=== PATIENT | female | born 1940 | race Caucasian/White ===

== ENCOUNTER 2019-05-10 13:16 | Outpatient (CLI) | payer MEDICARE, OTHER, SELFPAY ==
--- NOTE | 2019-05-10 13:34 | CT_ITS ---
WS: [id number] CT ABDOMEN PELVIS TECHNIQUE: Contrast-enhanced CT of the abdomen and pelvis with coronal and sagittal reformatted image s. CLINICAL INFORMATION: ABDOMINAL PAIN COMPARISON: None. DLP: 1132.[address] scans at [facility] use at least one of these dose optimization techniques: automat ed exposure control; mA and/or kV adjustment per patient size (includes targeted exams where dose is matched to clinical indication); or iterative reconstruction. FINDINGS: Liver is normal in appearance. Normal portal vein and splenic vein. Prominent calcified gallstone in the gallbladder neck measuring 2.1 x 1.7 CM. No gallbladder wall thickening or inflammatory stranding . This can be further evaluated with ultrasound. Splenic granulomas. Normal pancreatic parenchymal en hancement. Lung bases are well aerated. Calcified granuloma right lower lobe. Normal GE junction. Adrenal glands are normal. Normal renal parenchymal enhancement. No hydronephrosis. Aortic calcification. Moderate aortic atheromatous disease. No periaortic lymphadenopathy. Tiny fat-containing umbilical hernia. Sigmoid diverticulosis. No evidence of acute diverticulitis. No evidence of small or large bowel obst ruction. Normal appendix. No pelvic or inguinal lymphadenopathy. Disc space narrowing lumbar spine worse at L4-5. Prior hysterectomy. CT/CT abdomen pelvis w con* [id number] IMPRESSION: 1. Large calcified gallstone in gallbladder measuring 2.1 x 1.7 CM. This can b e further evaluated with ultrasound. 2. Diverticulosis. No evidence of acute diverticulitis. 3. No hydronephrosis. 4. No abdominal lymphadenopathy. 5. Sigmoid diverticulosis. 6. Prior hysterectomy.
[2019-05-10] MEDS: iohexol 300 mg/mL 50 mL Btl PO (14:29)
[2019-05-10 14:38] LABS: Blood Urea Nitrogen 11 mg/dL (8-23)
[2019-05-10] MEDS: iodixanol 320 mg/mL 100mL Btl IV (14:44)
== END 2019-05-10 13:17 | disposition home or self-care (01) ==
LOC: RADWPI 13:21
PROVIDERS: Family Provider Nurse Practitioner Family; PCP Family Medicine; Visit Provider Family Medicine
DX: K57.30 Diverticulosis of large intestine without perforation or abscess without bleeding (principal); K80.20 Calculus of gallbladder without cholecystitis without obstruction; R10.9 Unspecified abdominal pain; K80.80 Other cholelithiasis without obstruction
CPT/HCPCS: 74177; 82565; 84520; Q9967

== ENCOUNTER 2020-02-15 09:18 | Emergency (ER) | payer MEDICARE, OTHER, SELFPAY ==
--- NOTE | 2020-02-15 09:32 | XR_ITS ---
WS: [id number] XR chest 1V portable [id number] REASON FOR EXAM: COVID r/o, cough, fever FINDINGS: The chest is unchanged compared to previous examination of 05/02/2012. The heart is at the upper limits of normal in size. Calcified granulomatous disease in both hemithoraces. No active pulmonary parenchymal or pleural dise ase is identified. Mild changes of degenerative spondylosis in the lower thoracic spine. XR/XR chest 1V portable [id number] IMPRESSION: No acute chest abnormality.
[2020-02-15 09:36] VITALS: PULSE 59; RESP 12; TEMP 36.9; O2SAT 97; BMI 25.8
--- NOTE | 2020-02-15 09:51 | ED_ITS ---
HPI - COVID General: Chief Complaint: COVID symptoms Stated Complaint: cough/fever Time Seen by Provider: 02/15/20 09:31 Triage information: No fever, cough or shortness of breath . No known COVID + exposure last 14 days History of Present Illness: HPI Narrative: This patient is a 79-year-old female who is overall generally healthy. She presents today with fever and cough. The fever started last night and this morning was 101. She is also had a cough since yesterday morning. She also has had headaches and general malaise. She has not had vomiting or diarrhea. She has a history of getting bronchitis several times a year and initially thought that is what this was. She is concerned because of the fever. She does not know of any Covid exposures but she did go get her hair done last week. She is also had family members visiting. MD complaint: has COVID symptoms Prior covid testing: no COVID 19 common symptoms: positive fever(s), chills, cough, dyspnea, fatigue, body aches and headache(s); negative nausea or vomiting COVID 19 other sytmptoms: negative chest pain Onset (ago): day(s) (2) Severity: moderate Pertinent comorbid conditions: hypertension Treatment prior to arrival: none COVID Results: SARS-CoV-2 Antigen (Rapid) Negative (Negative) 02/15/20 10:41 02/15/20 Review of Systems General: Reports: 10 or more systems reviewed and unremarkable except in HPI and below Const: Reports: fever(s), chills, body aches and fatigue Eyes: Denies: change in vision ENMT: Denies: odynophagia Card: Denies: chest pain or swelling of feet/ankles Resp: Reports: dyspnea GI: Denies: abdominal pain, nausea or vomiting : Denies: flank pain or difficulty voiding Musc: Denies: neck pain or back pain Skin/Breast: Denies: rash Neuro: Reports: headache(s) Arnoldo/Lymph: Denies: easy bruising or easy bleeding Physical Exam Const: COMMON NORMALS: no acute distress, average body habitus, patient oriented x3, no limitations and alert GENERAL APPEARANCE: cooperative, comfortable and other (Skin feels warmer than the documented 98.4 temperature) HENMT: HEAD & SCALP: normal to inspection FACE & SINUS: normal facial exam Eye: GENERAL EYE: appearance normal, both eyes and all related structures Neck/C-Spine: COMMON NORMALS: supple, no meningeal signs and no JVD Chest: COMMONS NORMALS: normal inspection of the chest Resp: COMMON NORMALS: normal respiratory effort, No use of accessory muscles and clear to auscultation bilaterally AUSCULTATION: clear to auscultation bilaterally Cardio: COMMON NORMALS: no JVD, regular rate, regular rhythm and No murmurs present (Cardio) RATE: regular rate RHYTHM: regular rhythm GI: COMMON NORMALS: Normal to inspection, nondistended, normoactive bowel sounds present, Soft to palpation and non-tender INSPECTION: Yes normal to inspection AUSCULTATION: Yes normoactive bowel sounds PALPATION: Yes Soft to palpation Back/Pelvis: COMMON NORMALS: thoracic and lumbar spine normal to inspection Extremity: COMMON NORMALS: normal to inspection Neuro: COMMON NORMALS: patient oriented x3, moves all extremities, no focal motor deficits and no sensory deficits noted SENSORIUM/ORIENTATION: Yes alert MENINGEAL SIGNS: Yes no meningeal signs Psych: COMMON NORMALS: mental status grossly normal, cooperative and normal affect Skin: COMMON NORMALS: no rashes or lesions noted and turgor normal GENERAL SKIN EXAM: no rashes or lesions noted and turgor normal Course ED course: Patient had a negative Covid test but we did discuss that there are false negatives possible with any test. I advised that she continue to self isolate until a send out Covid comes back and is also negative. She expect she can have a little bit of an infiltrate in the left base and I am to put her on some antibiotics. Naheed send her home with a pulse oximeter. She has good follow-up through her primary care doctor and she understands to return to the ER if she is getting worse in any way. Vital Signs: Vital signs: Vital Signs Temperature 98.4 F 02/15/20 09:36 Pulse Rate 59 L 02/15/20 09:36 Respiratory Rate 12 02/15/20 09:36 Pulse Oximetry 96 02/15/20 10:55 MDM - COVID Lab Data: Labs: Lab Results 02/15/20 02/15/20 02/15/20 Range/Units 10:41 10:41 10:43 WBC 6.1 (4.0-10.0) 10^3/ uL RBC 4.59 (4.1-5.3) 10^6/u L Hgb 13.2 (11.5-15.3) g/dL Hct 41.8 (37.0-47.0) % MCV 91.1 (81-99) fL MCH 28.8 (28.0-34.0) pg MCHC 31.6 (30.0-36.0) g/dL RDW 13.4 (12.1-15.1) % Plt Count 243 (130-400) 10^3/c mm MPV 10.5 H (7.4-10.4) fL Neut % (Auto) 80.2 % Lymph % (Auto) 10.4 % [place] % (Auto) 6.6 % Eos % (Auto) 1.8 % Baso % (Auto) 0.7 % Neut # (Auto) 4.87 (1.8-7.7) 10^3/u L Lymph # (Auto) 0.6 L (0.8-4.8) 10^3/u L [place] # (Auto) 0.4 (0.2-0.9) 10^3/u L Eos # (Auto) 0.1 (0.0-0.8) 10^3/u L Baso # (Auto) 0.0 (0.0-0.1) 10^3/u L Nucleated RBC % (a uto) 0 % Nucleated RBCs # 0.0 /100WBC PT (12.1-14.9) SECO NDS INR (0.8-1.2) Fibrinogen (174-498) mg/dL D-Dimer (0-0.59) ug/mIFE U Sodium (136-145) mmol/L Potassium (3.5-5.1) mmol/L Chloride (98-107) mmol/L Carbon Dioxide (22-29) mmol/L Anion Gap (5-19) BUN (8-23) mg/dL Creatinine (0.5-0.9) mg/dL GFR Calculation Glucose (65-115) mg/dL Calculated Osmolal ity (285-295) mOsm/k g Lactic Acid (0.5-2.2) mmol/L Calcium (8.5-10.5) mg/dL Total Bilirubin (0.15-1.2) mg/dL AST (0-32) U/L ALT (0-33) U/L Alkaline Phosphata se (35-105) IU/L Lactate Dehydrogen ase (135-214) U/L C-Reactive Protein (0.0-4.9) mg/L NT-Pro-B Natriuret Pep (0-450) pg/mL Total Protein (6.6-8.7) g/dL Albumin (3.5-5.2) g/dL Globulin (1.3-4.6) g/dL Procalcitonin (0-0.5) ng/mL Influenza Type A A g Negative (Negative) Influenza Type B A g Negative (Negative) SARS-CoV-2 Ag (Rap id) Negative (Negative) 02/15/20 02/15/20 02/15/20 Range/Units 10:43 10:43 10:43 WBC (4.0-10.0) 10^3/ uL RBC (4.1-5.3) 10^6/u L Hgb (11.5-15.3) g/dL Hct (37.0-47.0) % MCV (81-99) fL MCH (28.0-34.0) pg MCHC (30.0-36.0) g/dL RDW (12.1-15.1) % Plt Count (130-400) 10^3/c mm MPV (7.4-10.4) fL Neut % (Auto) % Lymph % (Auto) % [place] % (Auto) % Eos % (Auto) % Baso % (Auto) % Neut # (Auto) (1.8-7.7) 10^3/u L Lymph # (Auto) (0.8-4.8) 10^3/u L [place] # (Auto) (0.2-0.9) 10^3/u L Eos # (Auto) (0.0-0.8) 10^3/u L Baso # (Auto) (0.0-0.1) 10^3/u L Nucleated RBC % (a uto) % Nucleated RBCs # /100WBC PT 13.00 (12.1-14.9) SECO NDS INR 0.95 (0.8-1.2) Fibrinogen 421 (174-498) mg/dL D-Dimer 0.83 H (0-0.59) ug/mIFE U Sodium 140 (136-145) mmol/L Potassium 3.6 (3.5-5.1) mmol/L Chloride 100 (98-107) mmol/L Carbon Dioxide 30 H (22-29) mmol/L Anion Gap 13.6 (5-19) BUN 11 (8-23) mg/dL Creatinine 1.0 H (0.5-0.9) mg/dL GFR Calculation Not Reportable Glucose 89 (65-115) mg/dL Calculated Osmolal ity 289 (285-295) mOsm/k g Lactic Acid 0.8 (0.5-2.2) mmol/L Calcium 9.1 (8.5-10.5) mg/dL Total Bilirubin 0.3 (0.15-1.2) mg/dL AST 18 (0-32) U/L ALT 13 (0-33) U/L Alkaline Phosphata se 80 (35-105) IU/L Lactate Dehydrogen ase 187 (135-214) U/L C-Reactive Protein 4.7 (0.0-4.9) mg/L NT-Pro-B Natriuret Pep 311 (0-450) pg/mL Total Protein 6.9 (6.6-8.7) g/dL Albumin 4.1 (3.5-5.2) g/dL Globulin 2.8 (1.3-4.6) g/dL Procalcitonin 0.03 (0-0.5) ng/mL Influenza Type A A g (Negative) Influenza Type B A g (Negative) SARS-CoV-2 Ag (Rap id) (Negative) COVID Results: SARS-CoV-2 Antigen (Rapid) Negative (Negative) 02/15/20 10:41 02/15/20 Discharge Plan Discharge Patient Disposition: Home Clinical Impression: Suspected severe acute respiratory syndrome coronavirus 2 (SARS-CoV-2) infection, Bronchitis Condition: Stable Prescriptions: New doxycycline hyclate 100 mg capsule 100 mg PO BID 10 Days Qty: 20 RF: 0 No Action carvedilol 25 mg tablet 25 mg PO BID RF: 0 pravastatin 40 mg tablet 40 mg PO DAILY RF: 0 lisinopril 20 mg tablet 20 mg PO BID RF: 0 Synthroid 25 mcg tablet 25 mcg PO DAILY RF: 0 isosorbide mononitrate 60 mg tablet extended release 24 hr 60 mg PO DAILY RF: 0 pantoprazole 40 mg tablet,delayed release (DR/EC) 40 mg PO DAILY RF: 0 Discharge Orders: Discharge Order (Routine); Ordered 02/15/20 Ordered By: Safia Dick Referrals: Carlo Jeffries MD [Primary Care Provider] - Discharge Diet: Usual diet Discharge Activity: Limit activity as instructed Patient Instructions: Acute Bronchitis (ED) Activity Restrictions/Additional Instructions: You should continue to self isolate until the results of the send out COVID test are back - as there are false negatives with the rapid test. Rest, drink plenty of fluids. Use tylenol for fever, headaches. Return if worse in any way including shortness of breath. 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
[2020-02-15 10:54] LABS: Basophils % 0.7 %; Eosinophils # 0.1 10^3/uL (0.0-0.8); Eosinophils % 1.8 %; Hematocrit 41.8 % (37.0-47.0); Hemoglobin 13.2 g/dL (11.5-15.3); Lymphocytes # 0.6 10^3/uL (0.8-4.8); Lymphocytes % 10.4 %; Mean Corpuscular HGB Conc 31.6 g/dL (30.0-36.0); Mean Corpuscular Hemoglobin 28.8 pg (28.0-34.0); Mean Corpuscular Volume 91.1 fL (81-99); Mean Platelet Volume 10.5 fL (7.4-10.4); Monocytes # 0.4 10^3/uL (0.2-0.9); Monocytes % 6.6 %; Neutrophils # 4.87 10^3/uL (1.8-7.7); Neutrophils % 80.2 %; Nucleated Red Blood Cells % 0 %; Platelet Count 243 10^3/cmm (130-400); Red Blood Count 4.59 10^6/uL (4.1-5.3); Red Cell Distribution Width 13.4 % (12.1-15.1); White Blood Count 6.1 10^3/uL (4.0-10.0)
[2020-02-15 10:55] VITALS: O2SAT 96
[2020-02-15 11:14] LABS: Lactic Sepsis W/Reflex 0.8 mmol/L (0.5-2.2)
[2020-02-15 11:26] LABS: INR 0.95 (0.8-1.2); NT Pro B Type Natriuretic Pept 311 pg/mL (0-450); Procalcitonin 0.03 ng/mL (0-0.5)
[2020-02-15 11:27] LABS: Fibrinogen 421 mg/dL (174-498)
[2020-02-15 11:29] LABS: D Dimer 0.83 ug/mIFEU (0-0.59)
[2020-02-15 11:37] LABS: Alanine Aminotransferase 13 U/L (0-33); Albumin Level 4.1 g/dL (3.5-5.2); Alkaline Phosphatase 80 IU/L (35-105); Anion Gap 13.6 (5-19); Aspartate Amino Transferase 18 U/L (0-32); Blood Urea Nitrogen 11 mg/dL (8-23); C Reactive Protein 4.7 mg/L (0.0-4.9); Calcium 9.1 mg/dL (8.5-10.5); Carbon Dioxide 30 mmol/L (22-29); Chloride 100 mmol/L (98-107); Globulin 2.8 g/dL (1.3-4.6); Glucose 89 mg/dL (65-115); Lactate Dehydrogenase 187 U/L (135-214); Osmolality Calculated 289 mOsm/kg (285-295); Potassium 3.6 mmol/L (3.5-5.1); Sodium 140 mmol/L (136-145); Total Bilirubin 0.3 mg/dL (0.15-1.2); Total Protein 6.9 g/dL (6.6-8.7)
[2020-02-15 11:49] LABS: SARS Covid-2 Antigen Negative (Negative)
[2020-02-15 11:52] LABS: Influenza A by IFA Negative (Negative); Influenza B by IFA Negative (Negative)
[2020-02-15 13:29] VITALS: BP 156/74; PULSE 70; RESP 18; O2SAT 98
[2020-02-17 07:28] LABS: Quest SARS-CoV-2 RNA DETECTED (NOT DETECTED)
--- NOTE | 2020-02-17 09:52 | PC.NURSE ---
pt notified of covid results
== END 2020-02-15 13:35 | disposition home or self-care (01) ==
PROVIDERS: Emergency Provider Emergency Medicine; PCP Family Medicine
DX: U07.1 COVID-19 (principal); J40 Bronchitis, not specified as acute or chronic
CPT/HCPCS: 12345; 71045; 80053; 83605; 83615; 83880; 84145; 85025; 85378; 85384; 85610; 86140; 87426; 87635; 87804; 99281; 99283

== ENCOUNTER 2021-06-19 06:54 | Outpatient (CLI) | payer MEDICARE, OTHER, SELFPAY ==
[2021-06-19 07:06] VITALS: BMI 25.8
--- NOTE | 2021-06-19 07:13 | ECG_ITS ---
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 Interpretive Statements NAME OF STUDY: LEXISCAN SESTAMIBI STRESS TEST INDICATION: Chest Pain, PROCEDURE: At the baseline, the EKG revealed normal sinus rhythm with a poor R wave progression. The baseline blood pressure was 144/75 mm Hg with a heart rate of 64 beats/min. Lexiscan was infused over a period of 20 seconds. A total of 0.4 milligrams of Lexiscan was infused. The stress phase was continued for a total of 5 minutes. Heart rate at the end of the stress phase was 73 with a blood pressure 129/60. The EKG at the peak infusion revealed no significant changes. Sestamibi was injected 20 seconds after the Lexiscan infusion. Blood pressure at the end of the recovery phase was 129/55 with a heart rate of 71 per minute. CONCLUSION: 1. Nonspecific EKG changes with the LexiScan infusion 2. No LexiScan induced chest pain or cardiac arrhythmia 3. Normal blood pressure and heart rate response 4. Sestamibi/sestamibi perfusion scan pending; see separate report. Electronically Signed On 06-22-2021 14:11:57 CDT by Eduardo Cortés M.D. [id number]
--- NOTE | 2021-06-19 07:13 | NMCV_ITS ---
NM huang perf SPECT r/s* [id number] Fabiana Gibbs Age: 80 Gender: F : 1940 Exam Date: 06/19/2021 07:13 Ordering Phys: Carlo Jeffries MD Technologist: SANAM De Anda Exam Location: [facility] Indications: CHEST PAIN STRESS TEST Please see separate stress test report in [facility] for full findings IMAGE PROTOCOL Rest/Stress 1 Lexiscan Day Radiopharmaceutical Dose (mCi) Administration Site Administered by Rest: Tc-99m 10.8 IV SANAM Stevenson Sestamibi Stress:Tc-99m 32.8 IV SANAM Stevenson Sestamibi Rest: 19-Jun-2021 60 Discovery 630 Stress: 19-Jun-2021 30 Discovery 630 0.4mg Lexiscan. Images obtained in supine and prone position. SPECT RESULTS Technical Quality: Excellent Raw Data Analysis: Normal Image Corrections: No attenuation or motion correction applied Summed Stress Score: 3 Summed Rest Score: 1 Summed Difference Score: 2 PERFUSION FINDINGS A small area of decreased tracer uptake in the apical anterior, apical lateral and LV apex with some areas of inconsistent reversibility in the anterior and apical regions FUNCTIONAL RESULTS (calculated via Gated SPECT) Stress Image LV EF (%): 71 Stress EDV (mL):79 TID: 1.07 Stress ESV (mL):23 FUNCTIONAL FINDINGS: Segmental wall motion analysis revealing no gross wall motion abnormalities IMPRESSIONS 1. Myocardial perfusion imaging revealing small areas of inconsistent reversible defects in the apical anterior and LV apex, may suggest ischemia in the distribution of the distal LAD/circumflex. But because of the inconsistencies, this could be artifactual. 2. Normal LV ejection fraction 71%. 3. LV wall motion analysis revealing no gross wall motion abnormalities. 4. Normal LV volume Possibly no significant ischemia, based on the above findings. Clinical correlation is recommended Dr Eduardo Cortés MD [facility] (Electronically Signed) Final Date: 19 June 2021 13:05 S
[2021-06-19 08:51] VITALS: BP 136/60; PULSE 64
[2021-06-19] MEDS: regadenoson 0.4 Mg/5 ml Syringe IVP (08:51)
== END 2021-06-19 06:55 | disposition home or self-care (01) ==
PROVIDERS: PCP Family Medicine; Visit Provider Family Medicine
DX: R07.9 Chest pain, unspecified (principal)
CPT/HCPCS: 78452; 93017; A9500; J2785

== ENCOUNTER 2021-07-05 07:14 | Outpatient (CLI) | payer MEDICARE, OTHER, SELFPAY ==
--- NOTE | 2021-07-05 07:23 | MM_ITS ---
WS: [id number] DIAGNOSTIC BILATERAL 3D TOMOSYNTHESIS DIGITAL MAMMOGRAM WITH CAD HISTORY: HX OF BREAST CA COMPARISON: 03/27/2018 and 11/04/2016, 06/29/2013 TECHNIQUE: Bilateral craniocaudad, mediolateral oblique, and mediolateral views are submitted. Comput er aided detection utilized. Breast composition: The breasts are heterogeneously dense, which may obscure small masses. Scattered asymmetries and lymph nodes. Benign vascular and round calcifications within each breast. MM/[place] [id number] IMPRESSION: BI-RADS: 2-Benign FOLLOW UP: 1 Year Follow-up
== END 2021-07-05 07:15 | disposition home or self-care (01) ==
LOC: RAD 07:17
PROVIDERS: PCP Family Medicine; Visit Provider Family Medicine
DX: Z85.3 Personal history of malignant neoplasm of breast (principal)
CPT/HCPCS: 77062

== ENCOUNTER → 2021-07-23 11:35 | Outpatient (BNVA) | payer MEDICARE, OTHER, SELFPAY | PROVIDERS: PCP Family Medicine; Visit Provider Internal Medicine | DX: R94.39 Abnormal result of other cardiovascular function study (principal); I10 Essential (primary) hypertension; Z87.891 Personal history of nicotine dependence; R00.1 Bradycardia, unspecified | CPT/HCPCS: 93005; 99203; 99204 ==

== ENCOUNTER 2021-10-11 06:58 | Outpatient (CLI) | payer MEDICARE, OTHER, SELFPAY ==
--- NOTE | 2021-10-11 07:00 | USCV_ITS ---
Fabiana Gibbs Age: 81 Gender: F : 1940 Exam Date: 10/11/2021 07:11 Ordering Phys: Ishan Alexander M.D ([email or web address]) Technologist: Vivian Beavers Exam Location: [facility] [place] Indication: sob BP: 138 / 69 HR: 50 Rhythm: Sinus Technical Quality: Adequate MEASUREMENTS (Male / Female) Normal Values 2D ECHO LV Diastolic Diameter PLAX 4.4 cm 4.2 - 5.9 / 3.9 - 5.3 cm LV Systolic Diameter PLAX 2.8 cm LV Chamber Size 4.3 cm IVS Diastolic Thickness 1.0 cm 0.6 - 1.0 / 0.6 - 0.9 cm IVS Systolic Thickness 1.7 cm LVPW Diastolic Thickness 1.1 cm 0.6 - 1.0 / 0.6 - 0.9 cm LVPW Systolic Thickness 1.7 cm RV Chamber Size 2.2 cm LVOT Diameter 2.0 cm LV Ejection Fraction 2D Teich 67.9 % LV Ejection Fraction MOD 2C 70.2 % LV Ejection Fraction 2C AL 69.7 % LA Diameter 3.9 cm LA Width 3.3 cm LA Height 4.4 cm RA Width 2.7 cm RA Height 3.4 cm Aorta at Sinotubular Diameter 2.9 cm IVC Diameter 1.9 cm M-MODE Aortic Annulus Diameter 3.3 cm LA Ao Ratio MM 1.3 MV E Point Septal Separation 0.6 cm DOPPLER AV Peak Velocity 140.0 cm/s LVOT Peak Velocity 83.3 cm/s AV Area Cont Eq vti 2.2 cm squared AV Area Cont Eq pk 1.9 cm squared MV Area PHT 2.4 cm squared Mitral E to A Ratio 0.9 MV E' Velocity 54.0 cm/s Mitral E to MV E' Ratio 11.6 Mitral E to LV E' Lateral Ratio 9.3 Mitral E to LV E' Septal Ratio 15.1 TR Peak Velocity 210.3 cm/s TR Peak Gradient 17.7 mmHg TR Mean Velocity 157.2 cm/s TR Mean Gradient 11.5 mmHg TR Velocity Time Integral 79.3 cm TV Peak E Velocity 60.0 cm/s Right Atrial Pressure 3.0 mmHg Pulmonary Artery Systolic Pressu 20.7 mmHg PV Peak Velocity 67.0 cm/s RV Acceleration Time 0.1 s RV Ejection Time 0.4 s RV AcT/ET 0.3 FINDINGS Left Ventricle Normal left ventricular size. LV systolic function is normal with EF of 55-60%. No regional wall motion abnormalities. Right Ventricle The right ventricle is normal in size and function. Right Atrium The right atrium is normal in size. Normal RA pressure Left Atrium The left atrium is normal in size. Mitral Valve Mild mitral annular calcification. Mild mitral regurgitation Aortic Valve Aortic valve is thickened. No significant aortic stenosis. No significant regurgitation. Tricuspid Valve Structurally normal tricuspid valve without significant stenosis. Mild tricuspid regurgitation. Pulmonary artery systolic pressure is normal. Pulmonic Valve Trace pulmonic regurgitation Pericardium Normal pericardium without effusion. Aorta Normal ascending aorta dimension. IVC CONCLUSIONS LV systolic function is normal with EF of 55 to 60%. Mild mitral regurgitation. Mild mitral annular calcification. Aortic valve is thickened. Mild tricuspid regurgitation. Trace pulmonic regurgitation. Compared to prior echocardiogram from 2013, no significant changes are seen. Ishan Alexander MD (Electronically Signed) Final Date: 24 October 2021 18:43 S
== END 2021-10-11 06:59 | disposition home or self-care (01) ==
PROVIDERS: PCP Family Medicine; Visit Provider Internal Medicine
DX: R06.02 Shortness of breath (principal)
CPT/HCPCS: 93306

== ENCOUNTER → 2022-04-29 13:51 | Outpatient (BNVA) | payer MEDICARE, OTHER, SELFPAY | PROVIDERS: PCP Family Medicine; Visit Provider Internal Medicine | DX: I10 Essential (primary) hypertension (principal); R94.39 Abnormal result of other cardiovascular function study; F17.210 Nicotine dependence, cigarettes, uncomplicated | CPT/HCPCS: 99214 ==

== ENCOUNTER → 2022-05-03 09:17 | Outpatient (BNVA) | payer MEDICARE, OTHER, SELFPAY | PROVIDERS: PCP Family Medicine; Visit Provider Family Medicine | DX: E03.9 Hypothyroidism, unspecified (principal); Z51.81 Encounter for therapeutic drug level monitoring; I10 Essential (primary) hypertension; Z13.220 Encounter for screening for lipoid disorders | CPT/HCPCS: 80053; 80061; 83735; 84439; 84443; 85025 ==

== ENCOUNTER 2022-07-09 10:23 | Outpatient (CLI) | payer MEDICARE, OTHER, SELFPAY ==
--- NOTE | 2022-07-09 10:36 | MM_ITS ---
WS: [id number] BILATERAL 3D TOMOSYNTHESIS DIGITAL SCREENING MAMMOGRAPHY WITH CAD CLINICAL INFORMATION: ANNUAL - HX OF BREAST CA HISTORY: Screening mammogram. No current complaints. COMPARISON: July 05, 2021 TECHNIQUE: Bilateral CC and MLO views. FINDINGS: The breasts are composed of heterogeneous fibroglandular density tissue, which can limit the detectio n of small underlying mass lesions. No suspicious mass, asymmetry, calcifications, or architectural d istortion. No evidence of malignancy. Incidental punctate calcifications similar to previous. Vascula r calcifications. MM/[place] [id number] IMPRESSION: BI-RADS: 2-Benign FOLLOW UP: 1 Year Follow-up Recommend return to annual diagnostic mammography.
== END 2022-07-09 10:24 | disposition home or self-care (01) ==
PROVIDERS: PCP Family Medicine; Visit Provider Family Medicine
DX: Z12.31 Encounter for screening mammogram for malignant neoplasm of breast (principal); Z85.3 Personal history of malignant neoplasm of breast
CPT/HCPCS: 77062; G0279

== ENCOUNTER 2022-08-31 23:53 | Emergency (ER) | payer MEDICARE, OTHER, SELFPAY ==
[2022-08-31 23:58] VITALS: BP 171/76; PULSE 58; RESP 18; TEMP 36.8; O2SAT 96; BMI 23.9
[2022-09-01 00:02] VITALS: BP 171/76; PULSE 56; RESP 16; O2SAT 97
--- NOTE | 2022-09-01 00:24 | ED_ITS ---
HPI - Allergic Reaction General: Chief complaint: Allergic Reaction Stated complaint: face swelling, sore throat, nausea Time Seen by Provider: 09/01/22 00:08 Source: patient Mode of arrival: ambulatory Limitations: no limitations History of Present Illness: HPI narrative: 82-year-old female states she noticed some swelling to left lower lip over the last few hours. She denies any shortness of breath denies any tongue swelling she does have noticeable swelling to her lips. She denies having any allergic reactions in the past she has not changed anything she has been on lisinopril for quite some time. Associated symptoms: Deny abdominal pain, nausea or vomiting Review of Systems Const: Denies: fever(s) or chills ENMT: Denies: throat pain or dental pain Card: Denies: chest pain Resp: Denies: dyspnea GI: Denies: abdominal pain, nausea, vomiting or diarrhea Musc: Denies: neck pain or back pain Skin/Breast: Denies: rash Neuro: Denies: headache(s) PFSH ED PFSH: Social History Smoking and tobacco status: former smoker Alcohol intake: never Substance/Drug Use: never Physical Exam Const: COMMON NORMALS: patient oriented x3 HENMT: COMMON NORMALS: normocephalic and atraumatic HEAD & SCALP: normocephalic and atraumatic OTHER: swelling to left lower lip/ no tongue swelling Eye: COMMON NORMALS: Equal, round and reactive pupils present and EOMs intact bilaterally PUPIL: Yes Equal, round and reactive pupils present Neck/C-Spine: COMMON NORMALS: full ROM and supple Chest: COMMONS NORMALS: normal inspection of the chest and normal palpation of entire chest wall Resp: COMMON NORMALS: normal respiratory effort, No retractions, No use of accessory muscles and clear to auscultation bilaterally AUSCULTATION: clear to auscultation bilaterally Cardio: COMMON NORMALS: regular rate, regular rhythm and No murmurs present (Cardio) RATE: regular rate RHYTHM: regular rhythm GI: COMMON NORMALS: Normal to inspection, nondistended, normoactive bowel sounds present, Soft to palpation, non-tender and no masses PALPATION: Yes Soft to palpation Extremity: COMMON NORMALS: normal to inspection and full ROM Neuro: COMMON NORMALS: patient oriented x3, moves all extremities and no focal motor deficits Psych: COMMON NORMALS: mental status grossly normal, Normal thought process present and cooperative THOUGHT PROCESS: Normal thought process present Skin: COMMON NORMALS: no rashes or lesions noted and no wounds GENERAL SKIN EXAM: no rashes or lesions noted Course Vital Signs: Vital signs: Vital Signs Temperature 98.2 F 08/31/22 23:58 Pulse Rate 56 L 09/01/22 00:02 Respiratory Rate 16 09/01/22 00:02 Blood Pressure 171/76 09/01/22 00:02 Pulse Oximetry 97 09/01/22 00:02 Oxygen Delivery Me thod Room Air 09/01/22 00:02 MDM - Allergic Reaction Medical Decision Making Patient presents here with angioedema is improving here could be from the lisinopril we will stop the lisinopril states her blood pressures been running a little low so we will hold that lisinopril have her take her blood pressure morning and night and follow-up with her PCP next week she also is hypothyroid with her TSH being high we will increase her Synthroid from 25-37.5 Medical Records I reviewed the patient's medical records. Lab Data I reviewed the patient's lab results. 09/01/22 00:05 09/01/22 00:05 Laboratory Results WBC 6.4 10^3/uL (4.0-10.0) 09/01/22 00:05 RBC 4.25 10^6/uL (4.1-5.3) 09/01/22 00:05 Hgb 12.5 g/dL (11.5-15.3) 09/01/22 00:05 Hct 37.2 % (37.0-47.0) 09/01/22 00:05 MCV 87.5 fl (81-99) 09/01/22 00:05 MCH 29.4 pg (28.0-34.0) 09/01/22 00:05 MCHC 33.6 g/dL (30.0-36.0) 09/01/22 00:05 RDW 12.0 % (12.1-15.1) L 09/01/22 00:05 Plt Count 286 10^3/cmm (130-400) 09/01/22 00:05 MPV 11.3 fL (7.4-10.4) H 09/01/22 00:05 Neut % (Auto) 59.5 % 09/01/22 00:05 Lymph % (Auto) 28.8 % 09/01/22 00:05 Stearns % (Auto) 6.4 % 09/01/22 00:05 Eos % (Auto) 4.7 % 09/01/22 00:05 Baso % (Auto) 0.3 % 09/01/22 00:05 Neut # (Auto) 3.78 10^3/uL (1.8-7.7) 09/01/22 00:05 Lymph # (Auto) 1.8 10^3/uL (0.8-4.8) 09/01/22 00:05 Stearns # (Auto) 0.4 10^3/uL (0.2-0.9) 09/01/22 00:05 Eos # (Auto) 0.3 10^3/uL (0.0-0.8) 09/01/22 00:05 Baso # (Auto) 0.0 10^3/uL (0.0-0.1) 09/01/22 00:05 Nucleated RBC % (auto) 0 % 09/01/22 00:05 Nucleated RBCs # 0.0 /100WBC 09/01/22 00:05 Sodium 130 mmol/L (136-145) L 09/01/22 00:05 Potassium 3.5 mmol/L (3.5-5.1) 09/01/22 00:05 Chloride 94 mmol/L (98-107) L 09/01/22 00:05 Carbon Dioxide 26 mmol/L (22-29) 09/01/22 00:05 Anion Gap 13.5 (5-19) 09/01/22 00:05 BUN 12 mg/dL (8-23) 09/01/22 00:05 Creatinine 0.7 mg/dL (0.5-0.9) 09/01/22 00:05 GFR Calculation Not Reportable 09/01/22 00:05 Glucose 114 mg/dL (65-115) 09/01/22 00:05 Calculated Osmolality 271 mOsm/kg (285-295) L 09/01/22 00:05 Calcium 8.8 mg/dL (8.5-10.5) 09/01/22 00:05 TSH 7.48 uIU/mL (0.27-4.20) H 09/01/22 00:05 Discharge Plan Discharge Patient Disposition: Home Clinical Impression: Angioedema, Hypothyroidism Condition: Stable Prescriptions: Changed levothyroxine 25 mcg tablet 37.5 mcg PO DAILY Qty: 90 3RF Discontinued lisinopril 20 mg tablet 20 mg PO BID Qty: 180 3RF No Action indapamide 2.5 mg tablet 2.5 mg PO QAM clonidine HCl 0.1 mg tablet 0.05 mg PO BID PRN (Reason: hypertensive emergency) isosorbide mononitrate 60 mg tablet extended release 24 hr See Rx Instructions .ROUTE .COMPLEX Qty: 90 3RF Dose Instruction: TAKE ONE TABLET BY MOUTH EVERY MORNING Rx Instructions: TAKE ONE TABLET BY MOUTH EVERY MORNING pravastatin 40 mg tablet 40 mg PO DAILY Qty: 90 3RF carvedilol 25 mg tablet 25 mg PO BID Qty: 180 3RF pantoprazole 40 mg tablet,delayed release (DR/EC) 40 mg PO DAILY Discharge Orders: Discharge ED (Routine); Ordered 09/01/22 Ordered By: Hailey Landrum Referrals: Carlo Jeffries MD [Primary Care Provider] - 1-3 days Discharge Diet: Advance as tolerated Discharge Activity: Resume usual activity Patient Instructions: Angioedema (ED) Coding Level of Care Code 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
[2022-09-01] MEDS: EPINEPHrine 1 mg/mL INJ 0.3 MG IM (00:27)
[2022-09-01] MEDS: diphenhydrAMINE 50 mg/mL SDV 1mL 25 MG IVP (00:31)
[2022-09-01] MEDS: hydrocortisone 100 mg/2 mL SDV IVP (00:33)
[2022-09-01] MEDS: famotidine 20 mg/2 mL INJ 40 MG IVP (00:37)
[2022-09-01 01:13] LABS: Basophils % 0.3 %; Eosinophils # 0.3 10^3/uL (0.0-0.8); Eosinophils % 4.7 %; Hematocrit 37.2 % (37.0-47.0); Hemoglobin 12.5 g/dL (11.5-15.3); Lymphocytes # 1.8 10^3/uL (0.8-4.8); Lymphocytes % 28.8 %; Mean Corpuscular HGB Conc 33.6 g/dL (30.0-36.0); Mean Corpuscular Hemoglobin 29.4 pg (28.0-34.0); Mean Corpuscular Volume 87.5 fl (81-99); Mean Platelet Volume 11.3 fL (7.4-10.4); Monocytes # 0.4 10^3/uL (0.2-0.9); Monocytes % 6.4 %; Neutrophils # 3.78 10^3/uL (1.8-7.7); Neutrophils % 59.5 %; Nucleated Red Blood Cells % 0 %; Platelet Count 286 10^3/cmm (130-400); Red Blood Count 4.25 10^6/uL (4.1-5.3); White Blood Count 6.4 10^3/uL (4.0-10.0)
[2022-09-01 01:47] LABS: Anion Gap 13.5 (5-19); Blood Urea Nitrogen 12 mg/dL (8-23); Calcium 8.8 mg/dL (8.5-10.5); Carbon Dioxide 26 mmol/L (22-29); Chloride 94 mmol/L (98-107); Glucose 114 mg/dL (65-115); Osmolality Calculated 271 mOsm/kg (285-295); Potassium 3.5 mmol/L (3.5-5.1); Sodium 130 mmol/L (136-145); Thyroid Stimulating Hormone 7.48 uIU/mL (0.27-4.20)
[2022-09-01 02:02] VITALS: BP 117/58; PULSE 58; RESP 14; O2SAT 97
== END 2022-09-01 02:11 | disposition home or self-care (01) ==
PROVIDERS: Emergency Provider Emergency Medicine; PCP Family Medicine
DX: T78.3XXA Angioneurotic edema, initial encounter (principal); X58.XXXA Exposure to other specified factors, initial encounter; E03.9 Hypothyroidism, unspecified
CPT/HCPCS: 80048; 84443; 85025; 96372; 96374; 96375; 99284; J0171; J1200; J1720; J3490

== ENCOUNTER → 2022-09-02 17:16 | Outpatient (BNVA) | payer MEDICARE, OTHER, SELFPAY | PROVIDERS: PCP Family Medicine; Visit Provider Family Medicine | DX: R05.9 Cough, unspecified (principal); R06.02 Shortness of breath | CPT/HCPCS: 71046 ==

== ENCOUNTER → 2023-01-27 12:51 | Outpatient (BNVA) | payer MEDICARE, OTHER, SELFPAY | PROVIDERS: PCP Family Medicine; Visit Provider Internal Medicine | DX: I10 Essential (primary) hypertension (principal); R94.39 Abnormal result of other cardiovascular function study; Z87.891 Personal history of nicotine dependence | CPT/HCPCS: 99213 ==

== ENCOUNTER 2023-07-16 07:42 | Outpatient (CLI) | payer MEDICARE, OTHER, SELFPAY ==
--- NOTE | 2023-07-16 08:00 | MM_ITS ---
WS: [id number] BILATERAL SCREENING DIGITAL TOMOSYNTHESIS MAMMOGRAM WITH CAD HISTORY: Diagnostic mammogram - history of breast cancer COMPARISON: 07/09/2022, 07/05/2021, 11/04/2016 Bilateral CC and MLO views with tomosynthesis and synthetic mammography submitted. Computer aided det ection analyzed. Breast composition: The breasts are heterogeneously dense, which may obscure small masses. No suspici ous masses, microcalcifications or architectural distortion. Scattered asymmetries and calcifications are stable over multiple prior years. IMPRESSION: MM/[place] [id number] BI-RADS: 2-Benign FOLLOW UP: 1 Year Follow-up
== END 2023-07-16 07:43 | disposition home or self-care (01) ==
LOC: RAD 07:42
PROVIDERS: PCP Family Medicine; Visit Provider Family Medicine
DX: C50.919 Malignant neoplasm of unspecified site of unspecified female breast (principal); R92.30 Dense breasts, unspecified
CPT/HCPCS: 77062; G0279

== ENCOUNTER → 2023-08-01 08:45 | Outpatient (BNVA) | payer MEDICARE, OTHER, SELFPAY | PROVIDERS: PCP Family Medicine; Visit Provider Family Medicine | DX: E03.9 Hypothyroidism, unspecified; E78.5 Hyperlipidemia, unspecified; Z51.81 Encounter for therapeutic drug level monitoring; Z13.220 Encounter for screening for lipoid disorders; E55.9 Vitamin D deficiency, unspecified | CPT/HCPCS: 80053; 80061; 82306; 83735; 84439; 84443; 85025 ==

== ENCOUNTER 2023-08-22 07:04 | Outpatient (CLI) | payer MEDICARE, OTHER, SELFPAY ==
--- NOTE | 2023-08-22 | ECG_ITS ---
[facility] Test Date: 2023-08-22 Pat Name: Fabiana Gibbs Department: Room: Gender: Female [employer] Teacher: Rafia Bauerfus : 1940 Requested By: Carlo Alfaro Order Number: [id number] Naida MD: Ishan Alexander M.D. Interpretive Statements NAME OF STUDY: LEXISCAN SESTAMIBI STRESS TEST INDICATION: [Chest Pain, ] Procedure: At the baseline, the blood pressure was 108/70 mmHg with a heart rate of 57 bpm. The electrocardiogram showed sinus bradycardia, normal axis with normal ST and T's. The Lexiscan was infused over a period of 20 seconds. A total of 0.4 mg of Lexiscan was infused. The stress phase was continued for a total of 5 minutes. Heart rate was at the end of stress phase was 62 bpm and a blood pressure of 135/61 mmHg. The EKG at the peak infusion revealed normal sinus rhythm with no significant ST-T wave changes. PVCs seen Sestamibi was injected 20 seconds after the Lexiscan infusion. Blood pressure at the end of recovery phase was 119/62 mmHg with a heart rate of 74 bpm.PVCs seen Conclusion: 1. Normal EKG response to Lexiscan infusion 2. No Lexiscan induced chest pain or cardiac arrhythmia. 3. Normal blood pressure and heart rate response. 4. Sestamibi/sestamibi perfusion scan pending; see separate report. Electronically Signed On 09-08-2023 8:46:52 CDT by Ishan Alexander M.D. [id number]
[2023-08-22 07:40] VITALS: BMI 24.3
--- NOTE | 2023-08-22 07:40 | NMCV_ITS ---
NM huang perf SPECT r/s* [id number] Fabiana Gibbs Age: 83 Gender: F : 1940 Exam Date: 08/22/2023 07:40 Ordering Phys: Carlo Jeffries MD Technologist: SANAM De Anda Exam Location: [facility] Indications: CHEST PAIN STRESS TEST Please see separate stress test report in [facility] for full findings IMAGE PROTOCOL Rest/Stress 1 Lexiscan Day Radiopharmaceutical Dose (mCi) Administration Site Administered by Rest: Tc-99m 10.7 IV SANAM Stevenson Sestamibi Stress:Tc-99m 32.5 IV SANAM Stevenson Sestamibi Rest: 22-Aug-2023 60 Discovery 630 Stress: 22-Aug-2023 30 Discovery 630 0.4mg Lexiscan. Supine position only as patient was unable to lay prone. SPECT RESULTS Technical Quality: Excellent Raw Data Analysis: Normal Image Corrections: No attenuation or motion correction applied Summed Stress Score: 0 Summed Rest Score: 0 Summed Difference Score: 0 PERFUSION FINDINGS SPECT images demonstrate homogeneous tracer distribution throughout the myocardium. FUNCTIONAL RESULTS (calculated via Gated SPECT) Stress Image LV EF (%): 69 Stress EDV (mL):87 TID: 0.9 Stress ESV (mL):27 FUNCTIONAL FINDINGS: There is normal left ventricular systolic function. IMPRESSIONS 1. Normal myocardial perfusion imaging with no evidence of ischemia 2. LV systolic function is normal Ishan Alexander MD (Electronically Signed) Final Date: 22 Aug 2023 11:39 S
[2023-08-22] MEDS: regadenoson 0.4 Mg/5 ml Syringe 0.400000000000000022 MG IVP (09:01)
[2023-08-22 09:07] VITALS: BP 119/62; PULSE 63
== END 2023-08-22 07:05 | disposition home or self-care (01) ==
LOC: CDL 07:05
PROVIDERS: PCP Family Medicine; Visit Provider Family Medicine
DX: R07.9 Chest pain, unspecified (principal)
CPT/HCPCS: 36415; 78452; 93017; 96374; A9500; J2785

== ENCOUNTER → 2023-10-27 15:17 | Outpatient (BNVA) | payer MEDICARE, OTHER, SELFPAY | PROVIDERS: PCP Family Medicine; Visit Provider Internal Medicine | DX: I10 Essential (primary) hypertension (principal); R94.39 Abnormal result of other cardiovascular function study | CPT/HCPCS: 99213 ==

== ENCOUNTER 2024-03-28 10:53 | Emergency (ER) | payer MEDICARE, OTHER, SELFPAY ==
[2024-03-28 11:18] VITALS: BP 174/67; PULSE 57; RESP 18; TEMP 36.7; O2SAT 96; BMI 22.2
--- NOTE | 2024-03-28 11:23 | XRR_ITS ---
PROCEDURE INFORMATION: Exam: XR Lumbosacral Spine Exam date and time: 03/28/2024 11:34 AM Age: 83 years old Clinical indication: Low back pain; Patient HX: Lower back pain post fall TECHNIQUE: Imaging protocol: Radiologic exam of the lumbosacral spine. Views: 2 or 3 views. COMPARISON: CT abdomen pelvis w con* [id number] 05/10/2019 2:41 PM FINDINGS: Bones/joints: Right scoliosis. Disc space narrowing spurring levels. 40% upper endplate compression of L1. This compression is new since 2019. Normal alignment. Soft tissues: Unremarkable. Organs: Faintly calcified gallstone. XR/XR lumbar spine 2-3V* [id number] IMPRESSION: 1. Moderate degenerative changes. 2. Mild L1 compression. This is new since. 3. Cholelithiasis.
[2024-03-28] MEDS: ondansetron 4 MG Tablet PO (11:29)
[2024-03-28] MEDS: morphine 4 mg/mL SDV 1 mL 6 MG IM (11:29)
--- NOTE | 2024-03-28 12:33 | ED_ITS ---
HPI - Fall General: Chief Complaint: Fall Stated Complaint: fell, back pain Time Seen by Provider: 03/28/24 11:17 History of Present Illness: This patient is an 83-year-old white female who presents to the emergency department with low back pain. Patient slipped on ice this morning and landed on her buttock. No head injury. No other injuries. Related Data Home Medications Medication Instructions Recorded Confirmed hydrocortisone 2.5 % topical cream See Rx Instructions .Route .COMPLEX 03/28/24 03/28/24 isosorbide mononitrate 60 mg 60 mg PO QAM 03/28/24 03/28/24 tablet,extended release 24 hr ketoconazole 2 % shampoo 1 applic topical DIRECTED 03/28/24 03/28/24 ketoconazole 2 % topical cream See Rx Instructions .Route .COMPLEX 03/28/24 03/28/24 levothyroxine 25 mcg tablet 25 mcg PO QAM 03/28/24 03/28/24 pantoprazole 40 mg tablet,delayed 40 mg PO DAILY 03/28/24 03/28/24 release Previous Rx's Medication Instructions Recorded carvedilol 25 mg tablet 25 mg PO BID #180 tabs 05/12/23 pravastatin 40 mg tablet 40 mg PO DAILY #90 tabs 05/12/23 nitroglycerin 0.4 mg sublingual 0.4 mg sublingual Q5M PRN chest 08/01/23 tablet (Nitrostat) pain #30 tabs indapamide 2.5 mg tablet 2.5 mg PO QAM #90 tabs 08/06/23 amlodipine 2.5 mg tablet 2.5 mg PO DAILY PRN SBP>160 or 11/25/23 DBP>100 #30 tabs hydrocodone 5 mg-acetaminophen 325 1 tab PO Q4H PRN pain #30 tabs 03/28/24 mg tablet Allergies Allergy/AdvReac Type Severity Reaction Status Date / Time lisinopril Allergy Intermediate ALGY-Swell Verified 10/27/23 15:51 Lip/Tongue/Throat sulfamethoxazole Allergy Unknown Unknown Verified 10/27/23 15:51 [From Bactrim] trimethoprim [From Bactrim] Allergy Unknown Unknown Verified 10/27/23 15:51 Review of Systems General: Reports: 10 or more systems reviewed and unremarkable except in HPI and below Musc: Reports: back pain PFSH ED PFSH: Medical History CAD (coronary artery disease) Breast cancer Hypothyroidism Cough Hypertension Surgical History Hx of lumpectomy History of knee replacement H/O: hysterectomy Social History Smoking and tobacco/nicotine status: never used tobacco/nicotine Alcohol intake: never Substance/Drug Use: never Physical Exam Const: COMMON NORMALS: patient oriented x3 and no limitations GENERAL APPEARANCE: cooperative HENMT: COMMON NORMALS: normocephalic, atraumatic, Normal nasal mucous membranes and turbinates present, moist oral mucous membranes and oropharynx normal HEAD & SCALP: normal to inspection, normocephalic and atraumatic FACE & SINUS: normal facial exam NOSE: Normal nasal mucous membranes and turbinates present Eye: COMMON NORMALS: Equal, round and reactive pupils present, EOMs intact bilaterally and conjunctivae normal GENERAL EYE: appearance normal, both eyes and all related structures CONJUNCTIVA: Yes conjunctivae normal PUPIL: Yes Equal, round and reactive pupils present Neck/C-Spine: COMMON NORMALS: supple and no JVD Chest: COMMONS NORMALS: normal inspection of the chest Resp: COMMON NORMALS: normal respiratory effort and clear to auscultation bilaterally AUSCULTATION: clear to auscultation bilaterally Cardio: COMMON NORMALS: no JVD, regular rate, regular rhythm, No gallops present (Cardio), No murmurs present (Cardio) and No rub (Cardio) RATE: regular rate RHYTHM: regular rhythm GI: COMMON NORMALS: Normal to inspection, nondistended, normoactive bowel sounds present, Soft to palpation and non-tender AUSCULTATION: Yes normoactive bowel sounds PALPATION: Yes Soft to palpation Back/Pelvis: OTHER: Tenderness over the upper lumbar spine. Extremity: COMMON NORMALS: normal to inspection Neuro: COMMON NORMALS: patient oriented x3 and CN's II-XII intact bilaterally Psych: COMMON NORMALS: mental status grossly normal, Normal thought process present and cooperative THOUGHT PROCESS: Normal thought process present Skin: COMMON NORMALS: no rashes or lesions noted, turgor normal and no jaundice GENERAL SKIN EXAM: no rashes or lesions noted and turgor normal Course Vital Signs: Vital signs: Vital Signs Temperature 98.0 F 03/28/24 11:18 Pulse Rate 57 L 03/28/24 11:18 Respiratory Rate 18 03/28/24 11:18 Blood Pressure 174/67 03/28/24 11:18 Pulse Oximetry 96 03/28/24 11:18 Oxygen Delivery Me thod Room Air 03/28/24 11:18 MDM - Fall Medical Decision Making X-rays of the lumbar spine reveal a slight compression fracture of L1. Patient was given an injection of morphine and is feeling significantly better. She was discharged in stable condition with a prescription for hydrocodone. Recommended she follow-up with her primary care physician in 1 week for recheck. Lab Data Radiology Impressions Lumbar Spine X-Ray 03/28/24 11:23 IMPRESSION: 1. Moderate degenerative changes. 2. Mild L1 compression. This is new since. 3. Cholelithiasis. All radiology interpretation(s) finalized by discharge Discharge Plan Discharge Patient Disposition: Home Clinical Impression: Compression fracture of lumbar vertebra Qualifiers: Encounter type: initial encounter Lumbar vertebra fracture level: L1 Qualified Code(s): S32.010A - Wedge compression fracture of first lumbar vertebra, initial encounter for closed fracture Condition: Stable Prescriptions: New hydrocodone-acetaminophen 5-325 mg tablet 1 tab PO Q4H PRN (Reason: pain) Qty: 30 0RF No Action nitroglycerin [Nitrostat] 0.4 mg tablet, sublingual 0.4 mg sublingual Q5M PRN (Reason: chest pain) Qty: 30 3RF Rx Instructions: do not exceed 3 doses per episode carvedilol 25 mg tablet 25 mg PO BID Qty: 180 3RF pravastatin 40 mg tablet 40 mg PO DAILY Qty: 90 3RF indapamide 2.5 mg tablet 2.5 mg PO QAM Qty: 90 3RF amlodipine 2.5 mg tablet 2.5 mg PO DAILY PRN (Reason: SBP>160 or DBP>100) Qty: 30 12RF ketoconazole 2 % shampoo 1 applic TOPICAL DIRECTED hydrocortisone 2.5 % cream See Rx Instructions .ROUTE .COMPLEX Rx Instructions: MIX 1 TO 1 WITH KETOCONAZOLE APPLY TO SCALY RASH ON FACE AND EYEBROWS TWICE DAILY. ketoconazole 2 % cream See Rx Instructions .ROUTE .COMPLEX Rx Instructions: MIX 1 TO 1 WITH HYDROCORTISONE- APPLY TO SCALY RASH ON FACE AND EYEBROWS TWICE DAILY. 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
== END 2024-03-28 12:38 | disposition home or self-care (01) ==
PROVIDERS: Emergency Provider Emergency Medicine; PCP Family Medicine
DX: S32.010A Wedge compression fracture of first lumbar vertebra, initial encounter for closed fracture (principal); I25.10 Atherosclerotic heart disease of native coronary artery without angina pectoris; I10 Essential (primary) hypertension; Z85.3 Personal history of malignant neoplasm of breast; W00.0XXA Fall on same level due to ice and snow, initial encounter
CPT/HCPCS: 72100; 96372; 99284; J2270; Q0162

== ENCOUNTER → 2024-04-08 10:09 | Outpatient (BNVA) | payer MEDICARE, OTHER, SELFPAY | PROVIDERS: PCP Family Medicine; Visit Provider Family Medicine | DX: Z51.81 Encounter for therapeutic drug level monitoring (principal); E53.8 Deficiency of other specified B group vitamins; E55.9 Vitamin D deficiency, unspecified; E03.9 Hypothyroidism, unspecified | CPT/HCPCS: 80053; 82306; 82607; 84439; 84443; 85025 ==

== ENCOUNTER 2024-07-16 10:30 | Outpatient (CLI) | payer MEDICARE, OTHER, SELFPAY ==
--- NOTE | 2024-07-16 10:30 | MM_ITS ---
WS: [id number] VIEWS: MLO, CC, and ML views both breasts. 3D digital tomosynthesis is also included in this exam. Comparisons 10/30/2006, 06/05/2009, 08/27/2012, 12/22/2007, 01/04/2011, 01/27/2012, 06/29/2013, 07/19/2014, 08/11/2015, 07/05/2016, 03/27/2018, 07/05/2021, 07/09/2022, 07/16/2023, Findings: The breasts are heterogeneously dense, which may obscure small masses. No suspicious mass, tumor calcification or architectural distortion. Stable appearing nodules in both breasts. MM/MM diag BI tomosynthesis [id number] Impression: BI-RADS: 2 - Benign FOLLOW-UP: 1 Year Follow-up This mammogram was also analyzed by the Computer Aided Detection System [employer] Editor.
== END 2024-07-16 10:31 | disposition home or self-care (01) ==
LOC: RAD 10:31
PROVIDERS: PCP Family Medicine; Visit Provider Family Medicine
DX: C50.919 Malignant neoplasm of unspecified site of unspecified female breast (principal); Z85.3 Personal history of malignant neoplasm of breast; R92.333 Mammographic heterogeneous density, bilateral breasts
CPT/HCPCS: 77062; G0279

== ENCOUNTER → 2024-10-26 12:51 | Outpatient (BNVA) | payer MEDICARE, OTHER, SELFPAY | PROVIDERS: PCP Family Medicine; Visit Provider Internal Medicine | DX: I10 Essential (primary) hypertension (principal); R94.39 Abnormal result of other cardiovascular function study | CPT/HCPCS: 99213 ==